=== PATIENT | male | born 1960 | race Caucasian/White ===

== ENCOUNTER 2022-06-14 15:25 | Outpatient (CLI) | payer OTHER, SELFPAY ==
--- NOTE | 2022-06-14 15:30 | MR_ITS ---
[facility] [address] [facility] [address] Phone:?[phone] Fax:?[phone] Referring Physician Information: Alo Elise M.D. [address] [place] [id number] Phone:?[phone] Fax:?[phone] Patient:?Gary Simpson D.O.B:?1960 Sex:?Male Phone:?[phone] [facility] MRN:?[id number] Exam Date:?06/14/2022 ? EXAM: MRI of the RIGHT KNEE, without contrast CLINICAL: Right knee pain. Evaluate for root tear. COMPARISONS: None available. TECHNICAL: MR sequences of the right knee: sagittals: PD, PDFS coronals: PD, T2FS axials: PD, PDFS SEDATION: None. CONTRAST: None. FINDINGS: Ligaments: ACL: Intact ACL anteromedial and posterolateral bundles, without sprain or tear. PCL: Intact PCL, without acute or chronic injury. MCL: Intact MCL superficial and deep layers, without injury. LCL: Intact LCL, without injury. Posterolateral corner: Popliteus, biceps femoris, iliotibial band, and the popliteofibular ligament appear intact. Posteromedial corner: Semimembranosus, pes anserine tendons and posterior oblique ligament appear intact. Extensor mechanism: Patellar tendon: Intact, without tendinopathy. Quadriceps tendon: Intact, without tendinopathy. Retinacula: Medial and lateral retinacula are intact. Fat pads: Unremarkable infrapatellar Hoffa's, quadriceps and prefemoral fat pads. Patellofemoral joint: Patella: There is heterogeneity of the patellar cartilage. Small 2 mm chondral defect involves the patellar median ridge on axial series 4 image 12. Focal deep chondral fissuring involves the peripheral lateral facet on axial series 4 image 9. Small segment of high-grade chondral loss involving the patellar median ridge on axial series 4 image 9. Trochlea: Grade 3-4 chondral loss is seen to involve the trochlear cartilage, with mild subchondral reactive marrow edema involving the central trochlea. Medial compartment: Medial meniscus: No evidence of discrete meniscal tear or meniscal displacement. Medial cartilage: Full-thickness chondral loss involves the weightbearing medial femoral condyle extending into the junction with the posterior nonweightbearing medial femoral condyle. Mild subchondral reactive marrow edema. Lateral compartment: Lateral meniscus: There is mild degenerative fraying/tearing involving the posterior horn on sagittal series 6 images 8-10, also seen to involve the body segment near the free edge on coronal series 8 images 20. Mild ill-defined degenerative fraying/tearing involving the posterior root fibers extending into the junction with the posterior horn. No meniscal displacement. Lateral cartilage: There is heterogeneity of the lateral compartment cartilage. Focal deep chondral fissure involving the lateral tibial plateau on coronal series 8 image 23 with a small adjacent segment of deep chondral delamination on coronal series 8 image 24. Grade 3 chondral thinning involves the posterior nonweightbearing lateral condyle. Knee joint: Effusion: Physiologic right knee effusion. Intra-articular bodies:?There are small intra-articular bodies within the the popliteal recess as seen on axial series 4 image 27-30. Popliteal cyst: None. Bones: No suspicious bone marrow signal alteration or fracture line. IMPRESSION: 1. Mild degenerative fraying/tearing involving the posterior horn and body segment of the lateral meniscus, with mild ill-defined degenerative fraying/tearing involving the posterior root fibers extending into the junction with the posterior horn lateral meniscus. No evidence of medial meniscal tear. 2. Tricompartmental chondromalacia/chondral loss as above. 3. Small intra-articular bodies within the popliteal recess. 4. No evidence of ligamentous injury or fracture. JCZ Electronically signed on 06/15/2022 7:55:00 AM by Finesse Rolle D.O.
== END 2022-06-14 15:26 | disposition home or self-care (01) ==
LOC: MRI 15:26
PROVIDERS: PCP Family Medicine; Visit Provider Orthopaedic Surgery
DX: M25.561 Pain in right knee (principal); M23.251 Derangement of posterior horn of lateral meniscus due to old tear or injury, right knee; M94.261 Chondromalacia, right knee
CPT/HCPCS: 73721